=== PATIENT | male | born 1945 | race Caucasian/White ===

== ENCOUNTER 2017-07-12 12:18 | Outpatient (CLI) | payer MEDICARE ==
--- NOTE | 2017-07-12 13:45 | MRI ---
MRI OF THE RIGHT KNEE: DATE: 07/12/17. PROVIDED CLINICAL HISTORY: Right knee pain. FINDINGS: The anterior cruciate ligament, medial collateral ligament, and lateral collateral ligamentous comple x demonstrate an intact MR appearance, as does the extensor mechanism. There is increased signal int ensity on fluid-sensitive sequence involving the popliteus tendon near its femoral attachment, likely reflecting changes of tendinosis or low-grade interstitial tearing. The posterior cruciate ligament appears thickened and demonstrates an internal fluid signal intensity compatible with partial tearin g. There is a full-thickness radial tear of the posterior horn of the medial meniscus as it approaches t he meniscal root. The lateral meniscus demonstrates no evidence for tear. There is an osteochondral lesion involving the central weight-bearing aspects of the medial femoral c ondyle with extensive surrounding marrow edema. This measures at least 1.8 cm in transverse dimensio n and at least 2.4 cm in AP dimension. There is mild fluid signal intensity at the interface with th e parent bone, which may reflect an unstable fragment. There is articular cartilage loss involving the medial central aspects of the femoral trochlea. No a dditional articular cartilage loss is evident. There is a moderate knee joint effusion. No additional focal concerning regional marrow or muscular signal abnormality is apparent. IMPRESSION: 1. Partial posterior cruciate ligament tear. 2. Full-thickness radial tear involving the posterior horn of the medial meniscus as it approaches t he meniscal root. 3. Osteochondral lesion involving the central weightbearing portion of the medial femoral condyle wi th potential for an unstable fragment. 4. Moderate knee joint effusion. 5. Trochlear chondrosis. POS: [facility]
== END 2017-07-12 12:19 | disposition home or self-care (01) ==
LOC: SCSMRI 12:18
PROVIDERS: ATTEND Orthopaedic Surgery
DX: M23.91 Unspecified internal derangement of right knee (principal); M25.461 Effusion, right knee

== ENCOUNTER 2017-08-13 08:33 | Outpatient (CLI) | payer MEDICARE ==
[2017-08-13 09:57] LABS: Mean Corpuscular HGB CONC 32.6 g/dL (32.0-36.0); Mean Corpuscular Hemoglobin 28.4 pg (27.0-31.0); Mean Corpuscular Volume 87.1 fl (80.0-94.0); Mean Platelet Volume 6.5 fL (7.4-10.4); Platelet Count 309 thou/uL (130-400); RBC Distribution Width 13.4 % (11.5-14.5); Red Blood Cell (RBC) Count 5.28 mill/uL (4.70-6.10); White Blood Cell (WBC) Count 8.5 thou/uL (4.8-10.8)
[2017-08-13 10:15] LABS: Anion Gap 16 mmol/L (10-20); BUN (Urea Nitrogen) 19 mg/dL (8.4-25.7); Calc. Creatinine Clearance 0 mL/min (70-130); Calcium 10.5 mg/dL (7.8-10.44); Carbon Dioxide 30 mmol/L (23-31); Chloride 95 mmol/L (98-107); Estimated GFR-MDRD 46; Glucose 232 mg/dL (83-110); Potassium 4.2 mmol/L (3.5-5.1); Sodium 137 mmol/L (136-145)
[2017-08-13 10:17] LABS: INR-International Normal Ratio 1.1; Prothrombin Time 14.4 SEC (12.0-14.7)
[2017-08-13 13:18] LABS: Bilirubin Small (Negative); Blood, Urine Negative (Negative); Clarity CLEAR (Clear); Glucose, Urine (Dipstick) Negative (Negative); Leukocyte Trace (Negative); Nitrite Negative (Negative); Protein, Urine (Dipstick) 30 mg/dL (Neg-Trace); Specific Gravity, Urine 1.028 (1.002-1.036); pH, Urine 5.5 (5.0-9.0)
[2017-08-13 13:24] LABS: Bacteria/HPF None Seen HPF (None Seen); Hyaline Casts/LPF 4-6 HYALINE CAST LPF (0-3 Hyaline); Squamous Epithelial None Seen HPF (0-3); WBC/HPF 0-3 HPF (0-3)
[2017-08-13 13:41] LABS: RBC/HPF 0-3 HPF (0-3)
== END 2017-08-13 08:34 | disposition home or self-care (01) ==
LOC: LABBT 08:33
PROVIDERS: ATTEND Orthopaedic Surgery
DX: Z01.818 Encounter for other preprocedural examination (principal); M17.11 Unilateral primary osteoarthritis, right knee
CPT/HCPCS: 80048; 81001; 85027; 85610; 86850; 86900; 86901

== ENCOUNTER 2017-08-19 05:31 | Day surgery (SDC) | payer MEDICARE ==
[2017-08-13 08:46] VITALS: BMI 30.8
--- NOTE | 2017-08-15 09:32 | HP ---
HISTORY OF PRESENT ILLNESS: The patient is a 71-year-old male who has a 4-5 month history of progres sive problems with his right knee without injury. He describes medial knee pain and popping. He has had progressive problems despite rest, restriction of activities, anti-inflammatory medications, and cortisone injections. The pain is now interfering with walking, getting dressed and sleeping. PAST MEDICAL HISTORY: The patient has history of hypertension, type 2 diabetes, and a large prostate . He has had degenerative arthritis of his left knee, but this has been managed with conservative tr eatment. He has been seen and cleared for surgery by Dr. Colin and Dr. Brooks. CURRENT MEDICATIONS: Include multivitamins, aspirin 325 mg, Naproxen, Hytrin, Lotrel, Zofran, metfor min, omeprazole, atenolol. ALLERGIES: He is allergic to CODEINE, BACTRIM and SULFA. FAMILY HISTORY/SOCIAL HISTORY/REVIEW OF SYSTEMS: Otherwise unremarkable. PHYSICAL EXAMINATION: GENERAL: Reveals a healthy male. HEENT: Unremarkable. NECK: Supple. CHEST: Clear. HEART: Regular rate and rhythm. ABDOMEN: Soft, nontender. RECTAL/GENITAL: Deferred. EXTREMITIES: Pertinent findings related to the right knee. There is puffiness, but no definite effu iris. There is mild varus. There is tenderness and crepitus over the medial joint line. Range of m otion is 0-130 degrees. There is no instability. Neurovascular exam is intact. There are palpable distal pulses. LABORATORY AND X-RAY FINDINGS: X-rays of the right knee revealed medial joint space narrowing and ir regularity of the medial femoral condyle consistent with an osteochondral defect, early osteonecrosis , which has been progressive on serial x-rays. MRI scan of the right knee reveals a large full-thick ness osteochondral lesion of the weightbearing aspect of the medial femoral condyle and a degenerativ e tear of the posterior horn of the medial meniscus and probable degenerative tear of the PCL. IMPRESSION: 1. Osteonecrosis and degenerative arthritis, right knee. 2. History of diabetes. 3. History of hypertension. PLAN: Right total knee replacement. The nature of the surgery, length of recovery, and potential co mplications such as infection, loss of motion, incomplete relief, delayed wound healing, neurovascula r injury, thromboembolic phenomena, possible transfusion, and need for revision have been discussed i n detail.
[2017-08-19] MEDS ORDERED: CEFAZOLIN/Water 2 GM/20 ML SYRINGE ONE (06:06)
[2017-08-19] MEDS ORDERED: Vancomycin HCl 1.5 GM in Sodium Chloride 0.9% 250 ML 300 ML IVPB SCH ×2 (06:15→18:00)
[2017-08-19] MEDS ORDERED: Fentanyl 250 MCG/5 ML VIAL ONE ×2 (06:28→09:50)
[2017-08-19] MEDS ORDERED: Midazolam HCl 2 mg/2 ml Vial ONE (06:28)
[2017-08-19] MEDS ORDERED: Bupivacaine/Epinephrine 0.25% 30 ML VIAL ONE (06:37)
[2017-08-19] MEDS ORDERED: Promethazine HCl 25 MG/ML VIAL IM PRN ×2 (07:24→09:16)
[2017-08-19] MEDS ORDERED: Zolpidem Tartrate 5 MG TAB PO PRN ×2 (07:24→11:22)
[2017-08-19] MEDS ORDERED: Ropivacaine 0.2% 550 ML 550 ML NERVE BLCK SCH (07:24)
[2017-08-19] MEDS ORDERED: Fentanyl 100 MCG/2 ML VIAL IV PRN (07:24)
[2017-08-19] MEDS ORDERED: traMADol HCl 50 MG TAB PO PRN ×2 (07:24)
[2017-08-19] MEDS ORDERED: Ondansetron HCl/PF 4 MG/2 ML Vial IVP PRN ×3 (07:24→11:22)
[2017-08-19] MEDS ORDERED: Fentanyl 100 MCG/2 ML VIAL ONE (08:02)
[2017-08-19] MEDS ORDERED: Promethazine HCl 25 MG/ML VIAL SLOW IVP PRN ×2 (09:16→11:22)
[2017-08-19] MEDS ORDERED: Tranexamic Acid 1,000 MG in Sodium Chloride 0.9% 100 ML IVPB SCH ×2 (09:30→11:22)
--- NOTE | 2017-08-19 09:55 | OP ---
DATE OF PROCEDURE: 08/19/2017 SURGEON: Grayson Giron M.D. CURTAIN MENDER: JASMIN Lewis. ANESTHESIA: General plus femoral sciatic nerve blocks. PREOPERATIVE DIAGNOSIS: Degenerative arthritis and osteonecrosis, right knee. POSTOPERATIVE DIAGNOSIS: Degenerative arthritis and osteonecrosis, right knee. PROCEDURES: Right total knee replacement with computer-assisted navigation with cemented Sargeant Tri athlon components (#4 femoral component, #4 universal tibial baseplate with 11 mm CS plastic insert a nd A32 all plastic patellar component). OPERATIVE FINDINGS: There was a very large osteonecrotic osteochondral lesion of the weightbearing s urface of the medial femoral condyle involving most of the weightbearing surface with partial collaps e and a large unstable segment of the articular surface that was secondary degenerative changes. NARRATIVE REPORT: After satisfactory anesthesia was induced in the supine position, sequential compr ession device was placed on the non-operative leg throughout the procedure. The right leg was then p repped and draped in routine sterile fashion. Right leg was elevated, exsanguinated with an Esmarch bandage, and the tourniquet inflated to 300 mmHg. A gently curved medial parapatellar incision was m isela, carried down to subcutaneous tissues. Bleeding points controlled with Bovie cautery. Medial pa rapatellar arthrotomy performed. Patella dislocated laterally and portions of the fat pad were excis ed for exposure. The above findings were noted. Osteophytes and meniscal remnants were removed. Us ing the appropriate guides and the Sargeant pinless navigation system, the distal femoral and proximal tibial articular surfaces were excised with an oscillating saw to accept the trial components. It w as felt that a #4 femoral component, #4 tibial baseplate with an 11 mm CS plastic insert gave appropr iate size, fit, stability, and correction of the preoperative deformity. The patellar articular surf tiago was excised to accept an all plastic A32 patellar component. There was good range of motion, goo d patellar tracking. The trial components removed. The knee was copiously irrigated with the pulsat ile lavage and the bony surfaces thoroughly cleaned and dried. The permanent component was then ceme nted in a single stage using 1 package of cement premixed with 1 gram of tobramycin powder. Excess c ement were removed. There was again good fit and stability of the components. The knee was then copra processor iously irrigated. The skin incision was infiltrated with 30 mL of 0.25% Marcaine with epinephrine. The medial retinaculum and quadriceps mechanism was repaired with interrupted #2 Vicryl and a running #2 Quill. Subcutaneous tissues were closed with running 0 Quill suture and the skin closed with run wilbert subcuticular 3-0 Monoderm and SurgiSeal skin adhesive. A sterile bulky compressive dressing was applied and the tourniquet deflated after 70 minutes. The foot promptly pinked up and a sequential compression device was placed on the operated leg. He was awakened and taken to recovery room in sta ble condition. There were no apparent intraoperative complications. The estimated blood loss was le ss than 100 mL.
[2017-08-19] MEDS ORDERED: Non-Formulary Item 1 EACH (Atenolol/Chlorthalidone [Atenolol-Chlorthalidone 50-25] 1 EACH PO SCH (11:22)
[2017-08-19] MEDS ORDERED: Acetaminophen 325 MG TAB PO PRN (11:22)
[2017-08-19] MEDS ORDERED: oxyCODONE/Acetaminophen 5 mg/325 mg Tablet PO PRN ×2 (11:22)
[2017-08-19] MEDS ORDERED: Fentanyl 100 MCG/2 ML VIAL SLOW IVP PRN ×2 (11:22)
[2017-08-19] MEDS ORDERED: diphenhydrAMINE 25 MG CAP PO PRN (11:22)
[2017-08-19] MEDS ORDERED: Ferrous Gluconate 324 MG TAB PO SCH (11:45)
[2017-08-19] MEDS ORDERED: Chlorthalidone 25 MG TAB PO SCH (11:45)
[2017-08-19] MEDS ORDERED: Atenolol 50 MG TAB PO SCH (11:45)
[2017-08-19] MEDS ORDERED: Senokot S 8.6-50 MG TAB PO SCH (11:45)
[2017-08-19] MEDS ORDERED: Aspirin 81 mg Enteric Coated Tablet PO SCH (11:45)
[2017-08-19] MEDS ORDERED: metFORMIN 500 MG TAB PO SCH (11:45)
[2017-08-19] MEDS ORDERED: Multivitamin W/ Minerals 1 TAB PO SCH (11:45)
[2017-08-19] MEDS: Sodium Chloride 0.9% 1,000 ML IV SCH ×2 (12:00→21:28)
--- NOTE | 2017-08-19 12:01 | RAD ---
RIGHT KNEE SERIES TWO VIEWS INDICATION: Post-op right knee prosthesis, post-surgical evaluation. FINDINGS: Right knee prosthesis present without hardware complication. Expected post-procedural findings of th e regional soft tissue seen. There is vascular calcification apparent. IMPRESSION: Postoperative right knee without acute hardware complication. POS: [facility]
[2017-08-19] MEDS ORDERED: hydrALAZINE 20 MG/ML VIAL SLOW IVP PRN (12:08)
[2017-08-19] MEDS ORDERED: Dextrose 5% in Water 1,000 ML IV PRN (12:08)
[2017-08-19] MEDS ORDERED: Insulin Regular 300 UNITS/3 ML VIAL SC PRN ×2 (12:08)
[2017-08-19] MEDS ORDERED: Dextrose 50% Abboject 50 ML SYRINGE SLOW IVP PRN (12:08)
[2017-08-19] MEDS: Ketorolac Tromethamine 30 MG/ML VIAL IVP PRN ×2 (12:13→21:00)
[2017-08-19] MEDS ORDERED: CEFAZOLIN/Water 2 GM/20 ML SYRINGE SLOW IVP SCH (14:00)
[2017-08-19] MEDS ORDERED: Ropivacaine 0.2% HCl/PF (40 MG/20 ML VIAL) ONE (16:39)
[2017-08-19] MEDS ORDERED: Ropivacaine 0.5% HCl/PF (150 MG/30 ML VIAL) ONE (16:39)
[2017-08-19] MEDS: CEFAZOLIN/Water 2 GM/20 ML SYRINGE SLOW IVP SCH ×2 (16:44→23:24)
[2017-08-19] MEDS ORDERED: Ondansetron HCl/PF 4 MG/2 ML Vial ONE (16:59)
[2017-08-19] MEDS ORDERED: Lidocaine 1% PF 5 ML VIAL ONE (16:59)
[2017-08-19] MEDS ORDERED: PROPOFOL 200 MG/20 ML VIAL ONE (16:59)
[2017-08-19] MEDS ORDERED: Dexamethasone 20 MG/5 ML VIAL ONE (16:59)
[2017-08-19] MEDS: Ferrous Gluconate 324 MG TAB PO SCH (20:20)
[2017-08-19] MEDS: metFORMIN 500 MG TAB PO SCH (20:20)
[2017-08-19] MEDS: Senokot S 8.6-50 MG TAB PO SCH (20:20)
[2017-08-19] MEDS: Aspirin 81 mg Enteric Coated Tablet PO SCH (20:21)
--- NOTE | 2017-08-19 20:49 | PDOC.PN ---
- Subjective Encounter Start Date: 08/19/17 Encounter Start Time: 12:00 Patient seen and examined. No new complaints. Pain controlled. Follows Dr Colin /Cecilia. Recent stress test negative. Echo 60-65%. No CP. - Objective MAR Reviewed: Yes Vital Signs & Weight: Vital Signs (12 hours) Temp Pulse Resp BP Pulse Ox 08/19/17 20:00 98 F 74 16 144/76 H 96 08/19/17 14:29 98.5 F 56 L 20 130/70 94 L 08/19/17 12:00 98.5 F 56 L 20 94 L Weight Weight 209 lb I&O: 08/18/17 08/19/17 08/20/17 06:59 06:59 06:59 Intake Total 1450 Output Total 200 Balance 1250 Additional Labs: Accuchecks 08/19/17 08/19/17 08/19/17 20:20 17:11 09:54 POC Glucose 216 H 205 H 152 H 08/19/17 07:24 POC Glucose 171 H EKG Reviewed by me: Yes (SR, LAD) Phys Exam - Physical Examination Constitutional: NAD HEENT: PERRLA, moist MMs Respiratory: no wheezing, no rales, no rhonchi Cardiovascular: RRR, no rub Gastrointestinal: soft, non-tender, positive bowel sounds Musculoskeletal: no edema Neurological: non-focal, moves all 4 limbs Psychiatric: A&O x 3 Dx/Plan - Plan DVT proph w/SCDs IMPRESSION: 1. HTN 2. DM2 3. Obesity 30.9 4. GERD 5. BPH PLAN: * Insulin sliding scale * Resume home meds as below * Cont Metformin * Cont Atenolol * Cont Terazosin Review of Systems - Review of Systems Respiratory: negative: Cough, Dry, Shortness of Breath, Hemoptysis, SOB with Excertion, Pleuritic Pain, Sputum, Wheezing Cardiovascular: negative: chest pain, palpitations, orthopnea, paroxysmal nocturnal dyspnea, edema, light headedness Gastrointestinal: negative: Nausea, Vomiting, Abdominal Pain, Diarrhea, Constipation, Melena, Hematochezia - Medications/Allergies Allergies/Adverse Reactions: Allergies Allergy/AdvReac Type Severity Reaction Status Date / Time codeine Allergy severe Verified 08/13/17 08:46 nausea Sulfa (Sulfonamide Allergy hives, Verified 08/13/17 08:46 Antibiotics) itching Medications: Current Medications Acetaminophen (Tylenol) 650 mg PO Q4H PRN PRN Reason: MARTELL/ T > 101F; Mild Pain (1-3) Amlodipine/Benazepril HCl (Lotrel 5/10) 1 cap PO HS [facility], [facility] Last Admin: 08/19/17 20:19 Dose: 1 cap Aspirin (Ecotrin) 81 mg PO BID [facility], [facility] Last Admin: 08/19/17 20:21 Dose: 81 mg Atenolol (Tenormin) 50 mg PO DAILY [facility], [facility] Cefazolin Sodium (Ancef) 2 gm SLOW IVP 0800,1600,2359 [facility], [facility]1983 Stop: 08/20/17 00:00 Last Admin: 08/19/17 16:44 Dose: 2 gm Chlorthalidone (Hygroton) 25 mg PO QAM [facility] Dextrose/Water (Dextrose 50%) 25 gm SLOW IVP PRN PRN PRN Reason: Hypoglycemia Diphenhydramine HCl (Benadryl) 25 mg PO Q6H PRN PRN Reason: Itching Fentanyl (Sublimaze) 50 mcg SLOW IVP Q30MIN PRN PRN Reason: Moderate Pain (4-6) Last Admin: 08/19/17 16:59 Dose: 50 mcg Fentanyl (Sublimaze) 100 mcg SLOW IVP Q1H PRN PRN Reason: Severe Pain (7-10) Ferrous Gluconate (Fergon) 324 mg PO BID [facility] Last Admin: 08/19/17 20:20 Dose: 324 mg Glucagon (Glucagon) 1 mg IM PRN PRN PRN Reason: Hypoglycemia Hydralazine HCl (Apresoline) 5 mg SLOW IVP Q4H PRN PRN Reason: SBP Greater Than 180 Ropivacaine (Ropivacaine 0.2% 550 Ml) 550 mls @ 0 mls/hr NERVE BLCK INF [facility] PRN Reason: As Directed Sodium Chloride (Normal Saline 0.9%) 1,000 mls @ 100 mls/hr IV .Q10H [facility] Last Admin: 08/19/17 12:00 Dose: Not Given Vancomycin HCl 1.5 gm/ Sodium (Chloride) 300 mls @ 200 mls/hr IVPB 1800 [facility] Stop: 08/19/17 23:59 Last Admin: 08/19/17 18:50 Dose: 300 mls Dextrose/Water (D5w) 1,000 mls @ 0 mls/hr IV .Q0M PRN; As Directed PRN Reason: Hypoglycemia Insulin Human Regular (Humulin R) 0 units SC .MILD SLIDING SCALE PRN PRN Reason: Mild Correctional Scale Last Admin: 08/19/17 18:54 Dose: 3 unit Insulin Human Regular (Humulin R) 0 units SC .BEDTIME SLIDING SC PRN PRN Reason: Bedtime Correctional Scale Iron/Minerals/Multivitamins (Theragran M) 1 tab PO DAILY [facility] Ketorolac Tromethamine (Toradol) 15 mg IVP Q6H PRN PRN Reason: Moderate Pain (4-6) Stop: 08/22/17 07:25 Last Admin: 08/19/17 12:13 Dose: 15 mg Metformin HCl (Glucophage) 1,000 mg PO BID [facility] Last Admin: 08/19/17 20:20 Dose: 1,000 mg Ondansetron HCl (Zofran) 4 mg IVP Q6H PRN PRN Reason: Nausea/Vomiting Ondansetron HCl (Zofran) 4 mg IVP Q6H PRN PRN Reason: Nausea/Vomiting Oxycodone/Acetaminophen (Percocet 5/325) 1 tab PO Q4H PRN PRN Reason: Mild-Moderate Pain (1-5) Oxycodone/Acetaminophen (Percocet 5/325) 2 tab PO Q4H PRN PRN Reason: Moderate to Severe Pain (6-10) Pantoprazole Sodium (Protonix) 40 mg PO DAILY [facility] Promethazine HCl (Phenergan) 12.5 mg IM Q4H PRN PRN Reason: Nausea Promethazine HCl (Phenergan) 12.5 mg SLOW IVP Q4H PRN PRN Reason: Nausea/Vomiting Senna/Docusate Sodium (Senokot S) 2 tab PO BID [facility] Last Admin: 08/19/17 20:20 Dose: 2 tab Sodium Chloride (Flush - Normal Saline) 10 ml IVF Q12HR [facility] Last Admin: 08/19/17 20:21 Dose: 10 ml Sodium Chloride (Flush - Normal Saline) 10 ml IVF PRN PRN PRN Reason: Saline Flush Sodium Chloride (Flush - Normal Saline) 10 ml IVF PRN PRN PRN Reason: Saline Flush Terazosin HCl (Hytrin) 5 mg PO HS [facility] Last Admin: 08/19/17 20:19 Dose: 5 mg Tramadol HCl (Ultram) 100 mg PO Q6H PRN PRN Reason: Mild Pain (1-3) Zolpidem Tartrate (Ambien) 5 mg PO HSPRN PRN PRN Reason: Insomnia
[2017-08-19] MEDS ORDERED: Terazosin HCl 5 MG CAP PO SCH (21:00)
[2017-08-19] MEDS ORDERED: Amlodipine 5 mg/Benazepril 10 mg CAP PO SCH ×2 (21:00)
[2017-08-20] MEDS: traMADol HCl 50 MG TAB PO PRN ×2 (03:36→09:19)
[2017-08-20 06:04] LABS: Mean Corpuscular HGB CONC 32.9 g/dL (32.0-36.0); Mean Corpuscular Hemoglobin 28.4 pg (27.0-31.0); Mean Corpuscular Volume 86.3 fl (80.0-94.0); Platelet Count 250 thou/uL (130-400); RBC Distribution Width 13.1 % (11.5-14.5); Red Blood Cell (RBC) Count 4.23 mill/uL (4.70-6.10); White Blood Cell (WBC) Count 12.4 thou/uL (4.8-10.8)
[2017-08-20] MEDS ORDERED: Chlorthalidone 25 MG TAB PO SCH ×2 (09:00)
[2017-08-20] MEDS ORDERED: Multivitamin W/ Minerals 1 TAB PO SCH (09:00)
[2017-08-20] MEDS ORDERED: Atenolol 50 MG TAB PO SCH ×2 (09:00)
[2017-08-20] MEDS: metFORMIN 500 MG TAB PO SCH (09:01)
[2017-08-20] MEDS: Senokot S 8.6-50 MG TAB PO SCH (09:01)
[2017-08-20] MEDS: Aspirin 81 mg Enteric Coated Tablet PO SCH (09:02)
[2017-08-20] MEDS: Sodium Chloride 0.9% 1,000 ML IV SCH (09:22)
[2017-08-20] MEDS: Ferrous Gluconate 324 MG TAB PO SCH (09:23)
[2017-08-20 13:54] VITALS: BP 126/63; TEMP 98.1
== END 2017-08-20 15:44 | disposition home or self-care (01) ==
LOC: SDC 05:31 → SJJU 07:09 → SDC 08-20 15:44
PROVIDERS: ATTEND Orthopaedic Surgery
PROC: 8E0YXBZ Computer Assisted Procedure of Lower Extremity (ICD-10-PCS; principal; 2017-08-19)
PROC: 0SRC0J9 Replacement of Right Knee Joint with Synthetic Substitute, Cemented, Open Approach (ICD-10-PCS; 2017-08-19)
DX: M17.11 Unilateral primary osteoarthritis, right knee (principal); M87.88 Other osteonecrosis, other site; I10 Essential (primary) hypertension; E11.9 Type 2 diabetes mellitus without complications; K21.9 Gastro-esophageal reflux disease without esophagitis; N40.0 Benign prostatic hyperplasia without lower urinary tract symptoms; E66.9 Obesity, unspecified; Z68.30 Body mass index [BMI] 30.0-30.9, adult; Z88.2 Allergy status to sulfonamides; Z88.5 Allergy status to narcotic agent; Z79.899 Other long term (current) drug therapy; Z79.84 Long term (current) use of oral hypoglycemic drugs
CPT/HCPCS: 20985; 27447; 73560; 82962; 85027; 97110; 97116 ×2; 97139 ×2; 97150; 97530; A4306; C1713; C1776; G8978; G8979; 36415; 36416; A4216; J1100; J1815; J1885; J2001; J2250; J2405; J2704; J2795; J3010; J3370; J7050